=== PATIENT | male | born 1980 | race Caucasian/White ===

== ENCOUNTER 2016-02-19 11:57 | Emergency (ER) | payer BC ==
[~2016-02-19] VITALS: Ht 188 cm; Wt 117.8 kg
[~2016-02-19 11:57] MED LIST: ATIVAN1 MG PO; AVELOX400 MG PO; DYNAPEN500 MG PO; K-LOR,KLOR-CON20 MEQ PO; LOPRESSOR25 MG PO; MAG-OX400 MG PO; MUCUS RELIEF600 M1 PO; NAPROSYN500 MG PO; PERCOCET 5/31 TABLET PO; TORADOL10 MG PO; ULTRAM50 MG PO; WELLBUTRIN100 MG PO; ZOFRAN4 MG PO; ZOLOFT100 MG PO; ZYRTEC10 M2 PO; [UNRECOGNIZED DRUG - OTHER] PO
[2016-02-19 12:46] LABS: HEMATOCRIT 41.5 % (38.0-50.0); MCH 29.4 PG (29.0-34.0); MCHC 35.4 G/DL (30.0-36.0); MEAN PLAT.VOLUME 10.3 uM^3 (9.0-12.4); PLATELET COUNT 247 K/uL (156-360); RBC DIS.WIDTH-CV 13.5 % (11.8-14.6); RBC DIS.WIDTH-SD 39.5 % (39-53); WHITE BLOOD COUNT 10.2 K/uL (4.1-10.2)
[2016-02-19 12:54] LABS: CHLORIDE 105 mEq/L (99-109); POTASSIUM 4.2 mEq/L (3.7-5.4); SODIUM 138 mEq/L (136-147)
[2016-02-19 12:55] LABS: GLUCOSE 101 mg/dL (70-99)
[2016-02-19 12:57] LABS: ANION GAP 9 MEQ/L (2-14)
[2016-02-19 13:00] LABS: GFR ESTIMATE (CALCULATED) > 59 mL/min/; UREA NITROGEN (BUN) 15 mg/dL (9-23)
[2016-02-19 14:16] LABS: ADD MIUA? YES; BILIRUBIN NEGATIVE; BLOOD MODERATE; COLOR YELLOW ((YELLOW)); GLUCOSE (STRIP) NEGATIVE; KETONES NEGATIVE; LEUKOCYTES NEGATIVE; NITRITE NEGATIVE; PH, URINE 7.5 (5-8); PROTEIN (STRIP) NEGATIVE; SPECIFIC GRAVITY 1.022 (1.000-1.030); UROBILINOGEN 0.2 MG/DL (0.2-1.0)
[2016-02-19 14:37] LABS: EPITHELIAL CELLS RARE; MUCUS NONE SEEN; WHITE BLOOD CELLS 0-5 /HPF (0-5)
[2016-02-19 14:38] LABS: BACTERIA RARE; CASTS NONE SEEN /LPF; CRYSTALS NONE SEEN; UCUL ADDED? NO
[2016-02-19 14:43] LABS: TOTAL BILIRUBIN 0.5 mg/dL (0.0-1.0)
[2016-02-19 14:44] LABS: ALKALINE PHOSPHATASE 84 IU/L (3-129)
[2016-02-19 14:47] LABS: DIRECT BILIRUBIN 0.2 mg/dL (0.0-0.3)
[2016-02-19 14:48] LABS: LIPASE 32 U/L (1.0-51.0)
[2016-02-19] MEDS ORDERED: AMOX TR-K CLV1 EAC4 PO (15:31)
[2016-02-19] MEDS ORDERED: FLOMAX0.4 MG PO (16:30)
[2016-02-19] MEDS ORDERED: NORCO 7.5/321 TABLET PO (16:30)
[2016-02-19] MEDS ORDERED: MOTRIN800 MG PO (16:30)
[2016-02-19] MEDS ORDERED: ZOFRAN ODT4 MG PO (16:30)
[2016-02-19 17:09] VITALS: BP 123/74
== END 2016-02-19 17:11 | disposition home or self-care (01) ==
LOC: EME 11:57
DX: N20.1 Calculus of ureter (principal)
CPT/HCPCS: 74176; 80048; 80076; 81003; 83690; 85027; 99281; 99284; J1885

== ENCOUNTER 2017-03-08 19:29 | Emergency (ER) | payer SELFPAY ==
[~2017-03-08] VITALS: Ht 195.6 cm; Wt 124.2 kg
[~2017-03-08 19:29] MED LIST changes: +AMOX TR-K CLV1 EAC4 PO; +FLOMAX0.4 MG PO; +MOTRIN800 MG PO; +NORCO 7.5/321 TABLET PO; +ZOFRAN ODT4 MG PO
[2017-03-08] MEDS ORDERED: FLONASE16 G1 BOTH NARES (20:59)
[2017-03-08] MEDS ORDERED: CHEST CONGESTI400 MG PO (21:04)
[2017-03-08 21:14] VITALS: BP 160/100
== END 2017-03-08 21:15 | disposition home or self-care (01) ==
LOC: EME 19:29 → RME 19:29
DX: J06.9 Acute upper respiratory infection, unspecified (principal); Z85.47 Personal history of malignant neoplasm of testis
CPT/HCPCS: 99281; 99283

== ENCOUNTER 2017-03-15 19:04 | Emergency (ER) | payer SELFPAY ==
[~2017-03-15] VITALS: Ht 195.6 cm; Wt 123.8 kg
[~2017-03-15 19:04] MED LIST changes: +CHEST CONGESTI400 MG PO; +FLONASE16 G1 BOTH NARES
[2017-03-15] MEDS ORDERED: PREDNISONE10 M1 PO (21:13)
[2017-03-15] MEDS ORDERED: ZITHROMAX Z-PA250 MG PO (21:13)
[2017-03-15 21:29] VITALS: BP 126/74
== END 2017-03-15 21:30 | disposition home or self-care (01) ==
LOC: EME 19:04
PROVIDERS: Physician Assistant
DX: J06.9 Acute upper respiratory infection, unspecified (principal); Z85.47 Personal history of malignant neoplasm of testis
CPT/HCPCS: 71046; 87502; 99281; 99284